=== PATIENT | male | born 1930 | race Caucasian/White ===

== ENCOUNTER → 2016-05-25 | Outpatient (CLI) | payer MEDICARE, OTHER | END | disposition home or self-care (01) | LOC: GMAL 10:34 | PROVIDERS: ATTEND Family Medicine | DX: I10 Essential (primary) hypertension (principal); D51.3 Other dietary vitamin B12 deficiency anemia; E55.9 Vitamin D deficiency, unspecified ==

== ENCOUNTER → 2016-05-29 | Outpatient (CLI) | payer MEDICARE, OTHER | END | disposition home or self-care (01) | LOC: GMAL 11:19 | PROVIDERS: ATTEND Family Medicine | DX: R94.6 Abnormal results of thyroid function studies (principal) ==

== ENCOUNTER → 2016-07-10 | Outpatient (CLI) | payer MEDICARE, OTHER | END | disposition home or self-care (01) | LOC: GMAL 14:22 | PROVIDERS: ATTEND Family Medicine | DX: R53.83 Other fatigue (principal) ==

== ENCOUNTER → 2016-09-07 | Outpatient (CLI) | payer MEDICARE, OTHER | END | disposition home or self-care (01) | LOC: GMAL 11:50 | PROVIDERS: ATTEND Family Medicine | DX: R53.83 Other fatigue (principal) ==

== ENCOUNTER → 2016-12-07 | Outpatient (CLI) | payer MEDICARE, OTHER | END | disposition home or self-care (01) | LOC: GMAL 10:13 | PROVIDERS: ATTEND Family Medicine | DX: R53.83 Other fatigue (principal) ==

== ENCOUNTER 2017-06-21 04:33 | Emergency (ER) | payer MEDICARE, OTHER ==
--- NOTE | 2017-06-21 04:47 | ED.PDOC ---
History of Present Illness - General Chief Complaint: ENT Problem Stated Complaint: unable to close mouth/Jaw pain Time Seen by Provider: 06/21/17 04:42 Source: patient Exam Limitations: no limitations - History of Present Illness Initial Comments: Sal Rosario 86 y/o male arrive by POV-drove himself unable to close his mouth and bilateral jaw pain which happened early this am and could not talk since mouth don't closed. Timing/Duration: abrupt Severity: moderate EENT Location: mouth - unable to close mouth Prearrival Treatment: no prearrival treatment Presenting Symptoms: mouth unable to close Improving Factors: nothing Worsening Factors: nothing Associated Symptoms: other - see hpi Allergies/Adverse Reactions: Allergies Amoxicillin Allergy (Verified 04/08/12 13:58) Meperidine [From Demerol HCl] Allergy (Verified 10/20/13 20:25) Piroxicam [From Feldene] Allergy (Verified 04/08/12 13:58) Home Medications: Ambulatory Orders Aspirin [Aspirin EC] 81 mg PO DAILY 10/20/13 Atorvastatin Calcium [Lipitor] 40 mg PO DAILY 10/20/13 Clonidine HCl 0.2 mg TD WKLY 10/20/13 Ferrous Sulfate 325 mg PO DAILY 10/20/13 Olmesartan Medoxomil-Hydrochlo [Benicar Hct 40-25 mg] 1 tab PO DAILY 10/20/13 Ipratropium/Albuterol [Duoneb] 3 ml INH TID #1 pack 10/22/13 Methotrexate Sodium [Methotrexate] 15 mg PO WKLY #0 10/22/13 levoFLOXacin 500MG IV [Levaquin 500MG IV] 500 mg IVPB Q24H #21 bag 10/22/13 predniSONE 20 mg PO DAILY #30 tab 10/22/13 Review of Systems - Review of Systems Constitutional: States: no symptoms reported EENTM: States: see HPI, other - unable to close mouth Respiratory: States: no symptoms reported Cardiology: States: no symptoms reported Gastrointestinal/Abdominal: States: no symptoms reported Endocrine: States: no symptoms reported All other Systems: Reviewed and Negative, No Change from Baseline Past Medical History (General) - Patient Medical History Hx Seizures: No Hx Stroke: No Hx Asthma: No Hx of COPD: No Hx Cardiac Disorders: No Hx Congestive Heart Failure: No Hx Pacemaker: No Hx Hypertension: Yes Hx Diabetes: No Hx Gastroesophageal Reflux: No Hx Cancer: Yes - jaw Hx MRSA: No Surgical History: other - jaw surgery - Social History Hx Tobacco Use: Yes Hx Alcohol Use: No Hx Substance Use: No Hx Physical Abuse: No Hx Emotional Abuse: No Family Medical History - Family History Mother Family History: Unknown Hx Cardiac Disease: Yes Physical Exam - Physical Exam General Appearance: Alert, No apparent distress Eye Exam: bilateral normal Ear Exam: bilateral ear: auricle normal Nasal Exam: normal inspection Throat Exam: other - unable to close mouth,mouth dry Progress - Progress Progress: 06/21/17 06:08 Vital Signs - 8 hr 06/21/17 06/21/17 06/21/17 05:15 05:56 06:00 Temperature 100.0 F H 100.0 F H Pulse Rate [ 96 H 66 93 H left] Respiratory 16 16 16 Rate Blood Pressure 191/135 107/68 191/95 [left] O2 Sat by Pulse 90 L 96 94 L Oximetry 06/21/17 06:09 Patient was given Dilaudid -1mg iv;Versed 1mg iv then after he was mildly sedated jaw was pushed down and pushed backward then reversal of dilaudid and versed done with narcan and flumazenil after BP systolic was noted to be 107 mm Hg;then he was able to talk to daughter and closed his mouth - EKG/XRAY/CT EKG: Sinus, no ST T wave changes Comments: Heart Rate-78;LAFB CT Ordered: Yes - mandible -anterior dislocation Departure - Departure Clinical Impression: Pain in lower jaw, History of mandibular surgery Closed dislocation of mandible Qualifiers: Encounter type: initial encounter Qualified Code(s): S03.00XA - Dislocation of jaw, unspecified side, initial encounter Time of Disposition: 06:16 Disposition: Discharge to Home or Self Care Condition: Fair Departure Forms: ED Discharge - Pt. Copy, Patient Portal Self Enrollment Instructions: DI for Jaw Dislocation Diet: full liquid diet, other - soft diet Referrals: Rahul Neumann III, MD [Primary Care Provider] - 1-2 Weeks Home Medications: Ambulatory Orders Aspirin [Aspirin EC] 81 mg PO DAILY 10/20/13 Atorvastatin Calcium [Lipitor] 40 mg PO DAILY 10/20/13 Clonidine HCl 0.2 mg TD WKLY 10/20/13 Ferrous Sulfate 325 mg PO DAILY 10/20/13 Olmesartan Medoxomil-Hydrochlo [Benicar Hct 40-25 mg] 1 tab PO DAILY 10/20/13 Ipratropium/Albuterol [Duoneb] 3 ml INH TID #1 pack 10/22/13 Methotrexate Sodium [Methotrexate] 15 mg PO WKLY #0 10/22/13 levoFLOXacin 500MG IV [Levaquin 500MG IV] 500 mg IVPB Q24H #21 bag 10/22/13 predniSONE 20 mg PO DAILY #30 tab 10/22/13 Additional Instructions: Return to emergency room as needed
[2017-06-21] MEDS ORDERED: MIDAZOLAM INJ 5 MG/5 ML VIAL IV ONE (05:27)
[2017-06-21] MEDS ORDERED: HYDROmorphone HCL INJ 2 MG/ML VIAL IV ONE (05:27)
--- NOTE | 2017-06-21 05:36 | RAD ---
4 VIEWS MANDIBLE RADIOGRAPHIC SERIES. REFERRAL DIAGNOSIS: Patient unable to close his mouth. COMPARISONS: None. FINDINGS: Suspect left mandibular condyle anterior dislocation. Sequela of extensive remote mandibular ORIF. IMPRESSION: Suspect left mandibular condyle anterior dislocation. Electronically signed by: Mook Maurice MD 06/21/2017 5:33 AM CDT
--- NOTE | 2017-06-21 05:38 | CT ---
EXAM: NONCONTRAST FACIAL CT EXAMINATION. CLINICAL INDICATION: Patient unable to close his mouth. COMPARISON: Today's radiographs of the mandible. TECHNIQUE: Using low dose helical technique, thin section axial images were performed through the facial bones without the administration of intravenous or subarachnoid contrast material. CT sagittal and coronal reconstructions were obtained. FINDINGS: Bilateral anterior mandibular condyle dislocation. No fractures. Sequela of remote left mandibular ORIF. The paranasal sinuses are clear. Globes and orbits are grossly normal. Nasopharyngeal soft tissue appears grossly normal. Moderate to severe atherosclerotic calcification in the cavernous internal carotid arteries. IMPRESSION: 1. Bilateral mandibular condyle dislocation without fracture. This exam was performed according to our departmental dose-optimization program, which includes automated exposure control, adjustment of the mA and/or kV according to patient size and/or use of iterative reconstruction technique. Electronically signed by: Mook Maurice MD 06/21/2017 5:36 AM CDT
[2017-06-21] MEDS ORDERED: NALOXONE HCL INJ 0.4 MG/ML VIAL ONE (05:48)
[2017-06-21 07:01] VITALS: BP 162/97; TEMP 97; O2SAT 97
== END 2017-06-21 07:02 | disposition home or self-care (01) ==
LOC: ER 04:33
DX: S03.03XA Dislocation of jaw, bilateral, initial encounter (principal); X58.XXXA Exposure to other specified factors, initial encounter; I10 Essential (primary) hypertension; Z87.891 Personal history of nicotine dependence; Z85.89 Personal history of malignant neoplasm of other organs and systems; Z79.82 Long term (current) use of aspirin; Z79.899 Other long term (current) drug therapy
CPT/HCPCS: 70110; 70486; 84439; 84443; 84481; 93005; J1170; J2250; J2310

== ENCOUNTER → 2017-09-20 | Outpatient (CLI) | payer MEDICARE, OTHER | LOC: GMAL 12:08 | PROVIDERS: ATTEND Family Medicine | DX: D51.3 Other dietary vitamin B12 deficiency anemia (principal); D53.9 Nutritional anemia, unspecified ==

== ENCOUNTER → 2018-01-29 | Outpatient (CLI) | payer MEDICARE, OTHER | LOC: GMAL 10:35 | PROVIDERS: ATTEND Family Medicine | DX: D51.3 Other dietary vitamin B12 deficiency anemia (principal); E03.9 Hypothyroidism, unspecified; E55.9 Vitamin D deficiency, unspecified ==

== ENCOUNTER → 2018-03-14 | Outpatient (CLI) | payer MEDICARE, OTHER | LOC: GMAJ 10:24 | PROVIDERS: ATTEND Family Medicine | DX: E03.9 Hypothyroidism, unspecified (principal) ==

== ENCOUNTER → 2018-05-01 | Outpatient (CLI) | payer MEDICARE, OTHER | LOC: GMAL 16:42 | PROVIDERS: ATTEND Family Medicine | DX: E03.9 Hypothyroidism, unspecified (principal) ==

== ENCOUNTER → 2018-10-29 | Outpatient (CLI) | payer MEDICARE, OTHER | LOC: GMAL 11:41 | PROVIDERS: ATTEND Family Medicine | DX: E03.9 Hypothyroidism, unspecified (principal); I10 Essential (primary) hypertension ==

== ENCOUNTER → 2019-02-10 | Outpatient (CLI) | payer MEDICARE, OTHER | LOC: GMAL 10:42 | PROVIDERS: ATTEND Family Medicine | DX: E03.9 Hypothyroidism, unspecified (principal); I10 Essential (primary) hypertension ==

== ENCOUNTER → 2019-08-07 | Outpatient (CLI) | payer MEDICARE, OTHER | LOC: GMAL 14:27 | PROVIDERS: ATTEND Family Medicine | DX: E03.9 Hypothyroidism, unspecified (principal); I10 Essential (primary) hypertension; Z79.899 Other long term (current) drug therapy ==

== ENCOUNTER 2019-08-18 18:12 | Emergency (ER) | payer MEDICARE, OTHER ==
[2019-08-18] MEDS ORDERED: fentaNYL CITRATE INJ 50 MCG/ML 2 ML AMP IV ONE (18:29)
[2019-08-18] MEDS ORDERED: ONDANSETRON INJ 4 MG/2 ML VIAL IV ONE (18:29)
--- NOTE | 2019-08-18 19:33 | RAD ---
EXAM: Hip,Left 2 Views CLINICAL INDICATION: 88-year-old male with pain status post fall. COMPARISON: None. TECHNIQUE: Two views of the LEFT hip were obtained in AP and lateral projection. FINDINGS: There is no fracture or dislocation. The joint spaces are preserved. No soft tissue abnormalities are seen. Large volume of fecal content present at the level of the rectum raising the question of fecal stasis or constipation. IMPRESSION: No acute radiographic abnormality. Electronically signed by: Ciarra Bal MD 08/18/2019 7:32 PM CDT
--- NOTE | 2019-08-18 19:35 | RAD ---
EXAM: Knee,Left Complete CLINICAL INDICATION: 88-year-old male with pain status post fall. TECHNIQUE: Three views LEFT knee were obtained in AP, lateral and patellar projections COMPARISON: None. FINDINGS: There is no fracture or dislocation. The joint spaces are preserved. No soft tissue abnormalities are seen. Postoperative changes with surgical clips at the level of the fibular diaphysis noted. Degenerative changes are identified with sharpening of the tibial spines and tricompartmental osteophytes. Vascular calcification present throughout the soft tissues. IMPRESSION: No acute radiographic abnormality. Electronically signed by: Ciarra Bal MD 08/18/2019 7:33 PM CDT
--- NOTE | 2019-08-18 20:29 | ED.PDOC ---
History of Present Illness - General Chief Complaint: Trauma Stated Complaint: Fall with left knee injury Time Seen by Provider: 08/18/19 18:27 Source: patient, RN notes reviewed, Vital Signs reviewed, EMS notes reviewed, family - History of Present Illness Initial Comments: This is an 88-year-old male who presents to the emergency department with after a ground-level fall that occurred in his front yard. Patient states he had been working on building a tool throughout the day today, stood up, and knee buckled and he fell to the ground. He did not hit his head, he did not lose consciousness. He denies any headache, changes in mental status. He states he had difficulty walking due to the pain but states he was able to stand up and walk to a chair after the fall occurred. No back pain or neck pain. He has multiple skin tears, all appear to be superficial. Last Tdap was 2 to 3 years ago.He denied any preceding chest pain, shortness of breath or dizziness. No sick contacts, no known COVID contacts, no recent admissions or hospitalizations. Allergies/Adverse Reactions: Allergies Amoxicillin Allergy (Verified 04/08/12 13:58) Meperidine [From Demerol HCl] Allergy (Verified 10/20/13 20:25) Piroxicam [From Feldene] Allergy (Verified 04/08/12 13:58) Home Medications: Ambulatory Orders RX: Aspirin [Aspirin EC] 81 mg PO DAILY 10/20/13 RX: Atorvastatin Calcium [Lipitor] 40 mg PO DAILY 10/20/13 RX: Clonidine HCl 0.2 mg TD WKLY 10/20/13 RX: Ferrous Sulfate 325 mg PO DAILY 10/20/13 RX: Olmesartan Medoxomil-Hydrochlo [Benicar Hct 40-25 mg] 1 tab PO DAILY 10/20/13 Ipratropium/Albuterol [Duoneb] 3 ml INH TID #1 pack 10/22/13 RX: Methotrexate Sodium [Methotrexate] 15 mg PO WKLY #0 10/22/13 RX: levoFLOXacin 500MG IV [Levaquin 500MG IV] 500 mg IVPB Q24H #21 bag 10/22/13 RX: predniSONE 20 mg PO DAILY #30 tab 10/22/13 RX: Tramadol HCl 50 mg PO Q6H PRN #20 tab 08/18/19 Review of Systems - Review of Systems Constitutional: Denies: chills, fever EENTM: Denies: double vision, nose pain, throat pain, mouth pain Respiratory: Denies: orthopnea, short of breath Cardiology: Denies: chest pain, edema, palpitations, syncope Gastrointestinal/Abdominal: Denies: constipation, diarrhea, nausea, vomiting Genitourinary: Denies: dysuria Musculoskeletal: States: joint pain, joint swelling. Denies: back pain, muscle pain, muscle stiffness, neck pain Skin: Denies: lesions, lumps, rash Neurological: Denies: headache, numbness, paresthesia, tingling, tremors, weakness Endocrine: States: no symptoms reported Hematologic/Lymphatic: States: no symptoms reported Past Medical History (General) - Patient Medical History Hx Seizures: No Hx Stroke: No Hx Asthma: No Hx of COPD: No Hx Cardiac Disorders: No Hx Congestive Heart Failure: No Hx Pacemaker: No Hx Hypertension: Yes Hx Diabetes: No Hx Gastroesophageal Reflux: No Hx Cancer: Yes - jaw Hx MRSA: No - Vaccination History Hx Tetanus, Diphtheria Vaccination: Yes Hx Influenza Vaccination: Yes Hx Pneumococcal Vaccination: Yes - Social History Hx Tobacco Use: Yes Hx Alcohol Use: No Hx Substance Use: No Hx Physical Abuse: No Hx Emotional Abuse: No - Activities of Daily Living Hospice Agency (if applicable):: None - Female History Patient is a Female of Child Bearing Age (10 -59 yrs old): No - Triage Comment ED Triage Comment: pt voices he was standing in yard and his leg "just fell out from under me". Pt voices he fell on his left knee. two skin tears ntoed to left arm. pt alert and orientedx3, converses with ease. follows commands. no n/v reported by pt. pt denies abdominal pain or burning during urination. Family Medical History - Family History Mother Family History: Unknown Living Status: Hx Cardiac Disease: Yes Physical Exam - Physical Exam General Appearance: Alert, Frail, No apparent distress Eye Exam: bilateral normal Ears, Nose, Throat: normal ENT inspection, normal pharynx, other - Old postoperative defect to the mandible and chin from previous cancer surgery and mandibular reconstruction Neck: non-tender, full range of motion Respiratory: chest non-tender, lungs clear, normal breath sounds, no respiratory distress Cardiovascular/Chest: normal peripheral pulses, regular rate, rhythm, no edema, no gallop Peripheral Pulses: radial,right: 2+, radial,left: 2+, dorsalis pedis,right: 2+, dorsalis pedis,left: 2+, posterior tibialis,right: 2+, posterior tibialis,left: 2+ Gastrointestinal/Abdominal: non tender, soft Back Exam: normal inspection, no CVA tenderness, no vertebral tenderness Extremity: other - There is tenderness and mild swelling over the left patella and left medial knee, pain with range of motion of the left knee. Left hip is nontender with full range of motion. Compartments are soft. Neurologic: metal lather II-XII nml as tested, no motor/sensory deficits, alert, oriented x 3 Skin Exam: normal color, warm/dry Progress - Progress Progress: 08/19/19 01:58 Late entry. I discussed the case with patient and , reviewed labs and plan for discharge home with knee immobilizer. Patient was able to bear weight with a steady gait to the wheelchair. He has a walker at home, which I recommended he use at all times. Will give contact information for orthopedist, and I chi mmended again appointment in 3 to 5 days for recheck. Strict warnings given to return the emergency room for headache, changes in mental status, difficulty walking, increased pain, or any other concerns. DDX: Fracture, strain, sprain, dislocation, anemia, skin tears DO Alton Griffith #[id number] - Results/Orders Results/Orders: EXAM: Knee,Left Complete CLINICAL INDICATION: 88-year-old male with pain status post fall. TECHNIQUE: Three views LEFT knee were obtained in AP, lateral and patellar projections COMPARISON: None. FINDINGS: There is no fracture or dislocation. The joint spaces are preserved. No soft tissue abnormalities are seen. Postoperative changes with surgical clips at the level of the fibular diaphysis noted. Degenerative changes are identified with sharpening of the tibial spines and tricompartmental osteophytes. Vascular calcification present throughout the soft tissues. IMPRESSION: No acute radiographic abnormality. Electronically signed by: Ciarra Bal MD 08/18/2019 7:33 PM CDT EXAM: Hip,Left 2 Views CLINICAL INDICATION: 88-year-old male with pain status post fall. COMPARISON: None. TECHNIQUE: Two views of the LEFT hip were obtained in AP and lateral projection. FINDINGS: There is no fracture or dislocation. The joint spaces are preserved. No soft tissue abnormalities are seen. Large volume of fecal content present at the level of the rectum raising the question of fecal stasis or constipation. IMPRESSION: No acute radiographic abnormality. Electronically signed by: Ciarra Bal MD 08/18/2019 7:32 PM CDT EXAM DESCRIPTION: Chest,1 View CLINICAL HISTORY: 88 years Male fall, low O2 sats COMPARISON: October 21, 2013. TECHNIQUE: AP view of the chest was obtained. FINDINGS: Cardiac size is within normal limits. Central vessels are noted increased. Eventration left hemidiaphragm. Previously noted airspace opacities right lung base decreased. Chronic parenchymal changes left lung base unchanged. Possible nodularity supralateral right upper hemithorax as well as left mid lung. No effusions bilaterally. No pneumothorax. IMPRESSION: COPD. Possible nodularity lateral right upper lung as well as left mid lung. These findings are not well visualized on prior studies. Consider nonemergency CT scan of chest for further characterization. No evidence for infiltrate or congestive heart failure. Electronically signed by: Marialuisa Parks MD 08/18/2019 8:37 PM CDT 08/18/19 18:29 Dressing Change,Simple .PRN 08/18/19 18:30 EKG STAT 08/18/19 20:28 Immobilizer .PRN Laboratory Results - last 24 hr 08/18/19 08/18/19 18:51 18:51 WBC 11.3 H RBC 3.29 L Hgb 9.5 L Hct 29.0 L MCV 88.2 MCH 28.9 MCHC 32.7 L RDW 15.4 H Plt Count 238 MPV 8.5 Absolute Neuts (auto) 9.70 H Absolute Lymphs (auto) 0.50 L Absolute Monos (auto) 0.90 H Absolute Eos (auto) 0.10 Absolute Basos (auto) 0.00 Neutrophils % 86.2 H Lymphocytes % 4.5 L Monocytes % 8.4 Eosinophils % 0.7 L Basophils % 0.2 Sodium 138 Potassium 4.8 Chloride 107 Carbon Dioxide 23 Anion Gap 12.8 BUN 61 H Creatinine 3.12 H BUN/Creatinine Ratio 19.6 Random Glucose 131 H Serum Osmolality 294.7 Calcium 8.8 Departure - Departure Clinical Impression: Fall at home, Left knee sprain, Pulmonary nodule, Chronic anemia Disposition: Discharge to Home or Self Care Condition: Good Health Concerns: Follow-up with your primary doctor in 3 to 5 days to arrange for outpatient CT chest to further evaluate and characterize pulmonary nodules noted on chest x- ray today. Departure Forms: ED Discharge - Pt. Copy, Patient Portal Self Enrollment Instructions: DI for Trauma, Knee Immobilizer (DC), Knee Sprain (DC) Diet: resume usual diet Activity: ambulate only with walker Referrals: Rahul Neumann III, MD [Primary Care Provider] - 1-5 Days Pj Hsu MD [Active Staff] - 1-5 Days Prescriptions: RX: Tramadol HCl 50 mg PO Q6H PRN #20 tab PRN Reason: Moderate To Severe Pain Home Medications: Ambulatory Orders RX: Aspirin [Aspirin EC] 81 mg PO DAILY 10/20/13 RX: Atorvastatin Calcium [Lipitor] 40 mg PO DAILY 10/20/13 RX: Clonidine HCl 0.2 mg TD WKLY 10/20/13 RX: Ferrous Sulfate 325 mg PO DAILY 10/20/13 RX: Olmesartan Medoxomil-Hydrochlo [Benicar Hct 40-25 mg] 1 tab PO DAILY 10/20/13 Ipratropium/Albuterol [Duoneb] 3 ml INH TID #1 pack 10/22/13 RX: Methotrexate Sodium [Methotrexate] 15 mg PO WKLY #0 10/22/13 RX: levoFLOXacin 500MG IV [Levaquin 500MG IV] 500 mg IVPB Q24H #21 bag 10/22/13 RX: predniSONE 20 mg PO DAILY #30 tab 10/22/13 RX: Tramadol HCl 50 mg PO Q6H PRN #20 tab 08/18/19
--- NOTE | 2019-08-18 20:39 | RAD ---
EXAM DESCRIPTION: Chest,1 View CLINICAL HISTORY: 88 years Male fall, low O2 sats COMPARISON: October 21, 2013. TECHNIQUE: AP view of the chest was obtained. FINDINGS: Cardiac size is within normal limits. Central vessels are noted increased. Eventration left hemidiaphragm. Previously noted airspace opacities right lung base decreased. Chronic parenchymal changes left lung base unchanged. Possible nodularity supralateral right upper hemithorax as well as left mid lung. No effusions bilaterally. No pneumothorax. IMPRESSION: COPD. Possible nodularity lateral right upper lung as well as left mid lung. These findings are not well visualized on prior studies. Consider nonemergency CT scan of chest for further characterization. No evidence for infiltrate or congestive heart failure. Electronically signed by: Marialuisa Parks MD 08/18/2019 8:37 PM CDT
[2019-08-18 20:59] VITALS: O2SAT 93
[2019-08-18 21:01] VITALS: BP 142/67; TEMP 98.6
[2019-08-18] MEDS ORDERED: HYDROcodone 5MG/APAP 325MG 1 EA TAB PO ONE (21:04)
== END 2019-08-18 21:30 | disposition home or self-care (01) ==
LOC: ER 18:12
DX: S83.92XA Sprain of unspecified site of left knee, initial encounter (principal); R91.1 Solitary pulmonary nodule; D64.9 Anemia, unspecified; I10 Essential (primary) hypertension; Z88.1 Allergy status to other antibiotic agents; Z88.8 Allergy status to other drugs, medicaments and biological substances; Z79.82 Long term (current) use of aspirin; Z79.899 Other long term (current) drug therapy; Z85.89 Personal history of malignant neoplasm of other organs and systems; Z87.891 Personal history of nicotine dependence; W19.XXXA Unspecified fall, initial encounter; Y92.007 Garden or yard of unspecified non-institutional (private) residence as the place of occurrence of the external cause
CPT/HCPCS: 36415; 71045; 73502; 73562; 80048; 85025; 93005; J2405; J3010

== ENCOUNTER → 2020-02-16 | Outpatient (CLI) | payer MEDICARE, OTHER | LOC: GMAL 11:02 | PROVIDERS: ATTEND Family Medicine | DX: D51.3 Other dietary vitamin B12 deficiency anemia (principal); D63.1 Anemia in chronic kidney disease; N18.9 Chronic kidney disease, unspecified; E55.9 Vitamin D deficiency, unspecified; E03.9 Hypothyroidism, unspecified; I10 Essential (primary) hypertension; Z79.899 Other long term (current) drug therapy ==

== ENCOUNTER → 2020-05-31 | Outpatient (CLI) | payer MEDICARE, OTHER | LOC: GMAL 11:41 | PROVIDERS: ATTEND Family Medicine | DX: R53.83 Other fatigue (principal) ==